=== PATIENT | female | born 2000 | race Caucasian/White ===

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

== ENCOUNTER → 2019-10-06 | Outpatient (CLI) | payer OTHER ==
[~2019-10-06] MED LIST changes: +OMEPRAZOLE10 MG PO; +ZANTAC 150150 MG PO
== END | disposition home or self-care (01) ==
LOC: COVID19 01:05
DX: Z20.828 Contact with and (suspected) exposure to other viral communicable diseases (principal)

== ENCOUNTER → 2019-10-30 | Outpatient (CLI) | payer OTHER | END | disposition home or self-care (01) | LOC: RAD 17:52 | PROVIDERS: ATTEND Nurse Practitioner Family | DX: R05 Cough (principal); R06.02 Shortness of breath ==

== ENCOUNTER → 2020-01-13 | Outpatient (CLI) | payer OTHER | END | disposition home or self-care (01) | LOC: COVID19 12:43 | PROVIDERS: ATTEND Nurse Practitioner Family | DX: U07.1 COVID-19 (principal) ==

== ENCOUNTER → 2021-04-07 | Outpatient (CLI) | payer OTHER ==
[2021-04-07 09:50] LABS: HEMATOCRIT 41.8 % (37.0-47.0); MEAN CELL VOLUME 84.6 fl (81.0-99.0); MEAN CORPUSCULAR HGB 27.3 pg (27.0-31.0); MEAN CORPUSCULAR HGB CONC 32.3 g/dl (33.0-37.0); MEAN PLATELET VOLUME 9.6 fl (9.6-12.3); RED BLOOD COUNT 4.94 10*6/uL (4.10-5.10); RED CELL DISTRI WIDTH 13.8 % (0-14.5)
[2021-04-07 10:18] LABS: CHLORIDE 108 mmol/L (98-107); SODIUM 136 mmol/L (136-145)
[2021-04-07 10:47] LABS: ALBUMIN 3.7 gm/dl (3.1-4.5); ALKALINE PHOSPHATASE 75 U/L (45-117); BUN 12 mg/dl (7-24); CHOLESTEROL 153 mg/dL (<200); CREATININE 0.76 mg/dL (0.55-1.02); FREE T4 1.07 ng/dl (0.76-1.46); LDL CHOLESTEROL 89 mg/dL (9-159); SGOT/AST 10 IU/L (3-35); SGPT/ALT 21 U/L (12-78); TRIGLYCERIDES 132 mg/dl (<150)
[2021-04-07 10:53] LABS: VITAMIN D, 25-HYDROXY 11.4 ng/mL (30-100)
== END | disposition home or self-care (01) ==
LOC: LAB 09:22
PROVIDERS: ATTEND Family Medicine
DX: Z00.00 Encounter for general adult medical examination without abnormal findings (principal); R53.83 Other fatigue; E55.9 Vitamin D deficiency, unspecified; F41.1 Generalized anxiety disorder; E74.00 Glycogen storage disease, unspecified; L68.0 Hirsutism

== ENCOUNTER 2023-08-13 19:15 | Emergency (ER) | payer OTHER ==
[~2023-08-13] VITALS: Wt 113.4 kg
[2023-08-13] MEDS ORDERED: LORazepam 0.5 MG TAB PO ONE (19:50)
[2023-08-13 20:06] LABS: BASO # 0.1 10*3/uL (0.0-0.1); BASO % 0.7 % (0.0-1.0); EOS # 0.1 10*3/uL (0.0-0.4); EOS % 1.1 % (1.0-4.0); HEMATOCRIT 43.5 % (37.0-47.0); LYMPH # 2.8 10*3/uL (1.3-4.4); MEAN CELL VOLUME 86.5 fl (81.0-99.0); MEAN CORPUSCULAR HGB 27.6 pg (27.0-31.0); MEAN PLATELET VOLUME 9.6 fl (9.6-12.3); MONO # 0.6 10*3/uL (0.1-1.0); MONO % 5.1 % (3.0-9.0); NEUT % 68.6 % (47.0-73.0); PLATELET COUNT AUTOMATED 325 10*3/uL (130-400); RED BLOOD COUNT 5.03 10*6/uL (4.10-5.10); RED CELL DISTRI WIDTH 13.5 % (0-14.5); WHITE BLOOD COUNT 11.7 10*3/uL (4.8-10.8)
[2023-08-13 20:23] LABS: ALKALINE PHOSPHATASE 86 U/L (46-116); BUN 10 mg/dl (9-23); CHLORIDE 104 mmol/L (98-107); POTASSIUM 3.8 mmol/L (3.4-5.1); SGPT/ALT 125 U/L (5-49)
[2023-08-13 20:36] LABS: BILIRUBIN Negative (Negative); BLOOD 2+ (Negative); CLARITY Clear (Clear); COLOR Yellow (Yellow); GLUCOSE Negative (Negative); KETONE Negative (Negative); LEUKO ESTERASE 2+ (Negative); NITRITE Negative (Negative); PH 5.5 (4.5-8.0); UROBILINOGEN 0.2 E.U./dl (0.0-1.0)
[2023-08-13 20:43] LABS: BACTERIA 1+
[2023-08-13] MEDS ORDERED: CIPRO500 MG PO (21:11)
== END 2023-08-13 21:22 | disposition home or self-care (01) ==
LOC: ED 19:15
PROVIDERS: Internal Medicine
DX: N39.0 Urinary tract infection, site not specified (principal); R07.89 Other chest pain; R42 Dizziness and giddiness; R06.02 Shortness of breath; Z88.2 Allergy status to sulfonamides; Z88.8 Allergy status to other drugs, medicaments and biological substances; Z98.890 Other specified postprocedural states

== ENCOUNTER 2024-04-16 14:31 | Emergency (ER) | payer OTHER ==
[~2024-04-16] VITALS: Ht 167.6 cm; Wt 108.9 kg
[~2024-04-16 14:31] MED LIST changes: +CIPRO500 MG PO
[2024-04-16] MEDS ORDERED: AVPAK AZITHROM250 M1 PO (14:49)
== END 2024-04-16 14:58 | disposition home or self-care (01) ==
LOC: ED 14:31
DX: J32.9 Chronic sinusitis, unspecified (principal); Z88.2 Allergy status to sulfonamides; Z88.8 Allergy status to other drugs, medicaments and biological substances; Z90.89 Acquired absence of other organs

== ENCOUNTER 2025-02-12 23:17 | Emergency (ER) | payer BC ==
[~2025-02-12] VITALS: Ht 167.6 cm; Wt 125.2 kg
[~2025-02-12 23:17] MED LIST changes: +AVPAK AZITHROM250 M1 PO
== END 2025-02-13 04:15 | disposition home or self-care (01) ==
LOC: ED 23:17
DX: U07.1 COVID-19 (principal); F41.9 Anxiety disorder, unspecified; Z88.2 Allergy status to sulfonamides; Z88.1 Allergy status to other antibiotic agents; Z88.8 Allergy status to other drugs, medicaments and biological substances; Z90.89 Acquired absence of other organs